=== PATIENT | male | born 1975 | race Two or more races ===

== ENCOUNTER 2017-08-20 11:08 | Emergency (ER) | payer OTHER ==
--- NOTE | 2017-08-20 13:47 | EDPHY ---
H & P Time Seen by Provider: 08/20/17 11:41 HPI/ROS: CHIEF COMPLAINT: Forehead laceration HISTORY OF PRESENT ILLNESS: 42-year-old male presents to the emergency department with forehead laceration. The patient was at home and tripped and fell hitting the counter in his bathroom. He did not lose consciousness. He denies a headache. Denies neck or back pain. Denies chest pain or difficulty breathing. Denies visual changes. No vomiting. No other symptoms. He believes his tetanus shot is current. REVIEW OF SYSTEMS: Constitutional: No fever, no chills. Eyes: No double or blurry vision. ENT: No sore throat. Respiratory: No cough, no shortness of breath. Cardiac: No chest pain. Gastrointestinal: No abdominal pain, vomiting or diarrhea. Genitourinary: No dysuria. Musculoskeletal: No neck or back pain. Skin: Laceration. No rashes. Neurological: No headache. Past Medical/Surgical History: Negative Social History: Smoking Status: Current every day smoker Physical Exam: General Appearance: Alert, no distress. Mentating normally and answering questions appropriately. Large stellate forehead laceration noted. Eyes: Pupils equal and round. Extraocular motions are all intact. ENT: Mouth: Mucous membranes moist. Respiratory: No wheezing, rhonchi, or rales, lungs are clear to auscultation. Cardiovascular: Regular rate and rhythm. Gastrointestinal: Abdomen is soft and nontender, no masses, no rebound or guarding, bowel sounds normal. Neurological: Alert and oriented x 3, cranial nerves II through XII grossly intact Skin: large stellate laceration measuring 10 cm. Warm and dry, no rashes. Musculoskeletal: Nontender to palpate along the cervical, thoracic or lumbar spine. Neck is supple. Extremities: Full range of motion and no peripheral edema. Psychiatric: Patient is oriented X 3, there is no agitation. Constitutional: Initial Vital Signs Temperature (C) 36.4 C 08/20/17 11:16 Heart Rate 81 08/20/17 11:16 Respiratory Rate 16 08/20/17 11:16 Blood Pressure 103/76 08/20/17 11:16 O2 Sat (%) 95 08/20/17 11:16 O2 Delivery Mode Room Air Allergies/Adverse Reactions: No Known Allergies Allergy (Unverified 08/20/17 11:19) Home Medications: Medication Instructions Recorded NK [No Known Home Meds] 08/20/17 Medical Decision Making Procedures: Laceration repair. Verbal consent was obtained from the patient. The 10 cm stellate laceration on the forehead was anesthetized using 1% lidocaine with epinephrine. The wound was irrigated with saline, draped and explored to its base with a gloved finger. There were no deep structures involved. The wound was repaired with 6 0 Vicryl, 12 sutures and 6 0 Prolene, 31 sutures. The wound repair was complex. The procedure was performed by myself. ED Course/Re-evaluation: 42-year-old male with forehead laceration. Patient has normal neurologic examination. I discussed the pros and cons of CT imaging of his brain including radiation exposure the patient agrees with not eating his brain. Patient was given closed-head injury precautions. His large stellate laceration was repaired, see procedure note. We did discuss possible plastic surgeon. I explained that I was very comfortable repairing the laceration. He is aware that the wound will scar and he was given information about ways to minimize scarring. Patient was given closed-head injury precautions and will return if he develops worsening headache, vomiting, altered mental status, or any other concerns. Differential Diagnosis: Head injury including but not limited to concussion, skull fracture, intraparenchymal contusion, subarachnoid, subdural and epidural hematoma. Departure - Departure Disposition: Home, Routine, Self-Care Clinical Impression: Forehead laceration Qualifiers: Encounter type: initial encounter Qualified Code(s): S01.81XA - Laceration without foreign body of other part of head, initial encounter Condition: Good Instructions: Care For Your Stitches (ED), Laceration (ED), Acute Wounds (ED) Additional Instructions: Wound Care Follow-Up: Removal of sutures in 7 days. Suture removal is complimentary in uncomplicated cases. Infection or abnormal findings would require reevaluation by the MD. In that case, you may be billed. Return sooner if you develop headache, vomiting, altered mental status, or if you feel worse in any way. To help minimize scarring, once the wound has completely healed and the sutures have been removed after 1 week, apply sunscreen as discussed once the wound has completely healed and the sutures have been removed. You should wear wide burn habits daily to help prevent scarring.
[2017-08-20 13:55] VITALS: BP 117/90; PULSE 82; RESP 14; TEMP 97.3; O2SAT 94
== END 2017-08-20 13:54 | disposition home or self-care (01) ==
PROC: 0HQ1XZZ Repair Face Skin, External Approach (ICD-10-PCS; principal; 2017-08-20)
DX: S01.81XA Laceration without foreign body of other part of head, initial encounter (principal); F17.200 Nicotine dependence, unspecified, uncomplicated; W01.198A Fall on same level from slipping, tripping and stumbling with subsequent striking against other object, initial encounter; Y92.009 Unspecified place in unspecified non-institutional (private) residence as the place of occurrence of the external cause; Y99.0 Civilian activity done for income or pay